=== PATIENT | female | born 1965 | race Two or more races ===

== ENCOUNTER 2025-01-21 16:36 | Emergency (ER) | payer MEDICAID, SELFPAY ==
[2025-01-21 16:37] VITALS: BMI 47.5
[2025-01-21 16:52] VITALS: BP 134/82; PULSE 96; RESP 18; TEMP 37; O2SAT 96
--- NOTE | 2025-01-21 16:55 | XR_ITS ---
Examination: CT brain head without contrast. 2-D sagittal coronal reconstructions Date and time of exam:January 21, 2025 1717 hrs. Indications: Patient fell today with injury to the head, head pain CTDI: vol (mGy):55.5 DLP: (mGycm):1100 Technique: Multiple CT axial sections of the brain have been obtained, 5 mm slice thickness. Contrast has not been administered. 2-D sagittal, coronal reconstructions have been obtained Low dose protocols were performed. One or more of the following dose reduction techniques were used; automated exposure control, adjustment of the mA and/or KV according to patient size, use of iterative reconstruction technique. Findings: No significant ventricular enlargement. Intra-axial or extra-axial hemorrhage density is not seen. No mass effect or midline shift Basal cisterns are not remarkable. Fourth ventricle is midline. Cranial vault intact. Impression: Negative for acute hemorrhage, mass effect or midline shift
--- NOTE | 2025-01-21 16:55 | XR_ITS ---
Examination: Shoulder,right, 3 views Technique: Shoulder AP internal rotation, AP external rotation, Y view shoulder, 3 views Exam date and time :January 21, 2025 1710 hrs. Indications: Injured the shoulder today, shoulder pain. Findings: Moderate narrowing glenohumeral joint Significant osteoarthritis acromioclavicular joint No acute fracture or shoulder dislocation Impression: No acute fracture
--- NOTE | 2025-01-21 16:55 | XR_ITS ---
Examination: CT cervical spine without contrast 2-D sagittal reconstructions 2-D coronal reconstructions 3-D reconstructions. Exam date and time: January 21, 2025 1717 hrs. Indications: Patient fell today with injury to the neck, neck pain CTDI:vol (mGy) 9.95 DLP: (mGycm) 200 Technique: Multiple 2 mm axial sections of the cervical spine have been obtained. The coronal and sagittal reconstructions have been obtained. 3-D reconstructions have been obtained. Low dose protocols were performed. One or more of the following dose reduction techniques were used; automated exposure control, adjustment of the mA and/or KV according to patient size, use of iterative reconstruction technique. Findings: Axial sections demonstrate intact base of the skull. C1 exhibit satisfactory relationship to the odontoid. No acute cervical vertebral body fracture seen. Alignment posterior spinous processes satisfactory. Impression: No acute cervical fracture.
--- NOTE | 2025-01-21 16:55 | XR_ITS ---
Examination: Knee bilateral, 6 views Technique: Knee AP, lateral, oblique, each knee total 6 views Date and time of exam: January 21, 2025 1710 hrs. Indications: Injury to both knees today, bilateral knee pain. Findings: Prominent osteopenia Bilateral advanced tricompartment osteoarthritis No fracture or dislocation involving either knee. Impression: No fracture or dislocation involving either knee
--- NOTE | 2025-01-21 16:55 | XR_ITS ---
Examination: Forearm, right, 2 views. Technique: Forearm, AP, lateral 2 views Date and time of exam: January 21, 2025 1710 hrs. Indications: Injury to the forearm today, forearm pain. Findings: No fracture or dislocation. No foreign body Impression: No fracture or dislocation
--- NOTE | 2025-01-21 16:55 | XR_ITS ---
Examination: Humerus 2 views right Technique: Humerus, AP lateral 2 views Date and time of exam: January 21, 2025 1715 hrs. Indications: Injury to the arm today, arm pain. Findings: No shoulder fracture or dislocation Shaft of the humerus appears intact Impression: No acute fracture
--- NOTE | 2025-01-21 16:56 | PD.EDRME ---
Rapid Medical Screening Exam RME Arrival date/time: 01/21/25 16:36 59-year-old female presents to the emergency department complains of bilateral knee pain, shoulder pain and arm pain as well as head and neck pain after ground-level fall last night Chief Complaint: Extremity Injury, Lower Time Seen by Provider: 01/21/25 16:45 Vital signs: Vital Signs Temperature 98.6 F 01/21/25 16:52 Pulse Rate 96 01/21/25 16:52 Respiratory Rate 18 01/21/25 16:52 Blood Pressure 134/82 H 01/21/25 16:52 Pulse Oximetry (%) 96 01/21/25 16:52 Oxygen Delivery Method Room Air 01/21/25 16:52
[2025-01-21 18:15] VITALS: BP 132/85; PULSE 90; RESP 19; TEMP 36.8; O2SAT 99
--- NOTE | 2025-01-21 18:38 | PRELIM_ITS ---
CT scan of the head without intravenous contrast (axial sections with sagittal and coronal reformats) January 21, 2025 1717 hours Clinical History: Trauma. Comparison: No prior study is available for comparison. Findings: There is no evidence of intracranial hemorrhage, mass effect or midline shift. There are periventricular white matter hypodensities, compatible with chronic small vessel ischemia. The CSF spaces are prominent consistent with moderate volume loss. Hyperostosis frontalis interna is identified. The calvarium is intact. The mastoid air cells and the visualized paranasal sinuses are clear. Impression: No evidence of intracranial hemorrhage, midline shift or calvarial fracture. Chronic small vessel ischemia and moderate volume loss. Report Electronically Signed By: Zuri Gordon 01/21/2025 6:37:56 PM [EST]
--- NOTE | 2025-01-21 18:42 | PRELIM_ITS ---
CT scan of the cervical spine without intravenous contrast (axial sections with sagittal and coronal reformats) January 21, 2025 1717 hours Clinical History: Trauma. Comparison: No prior study is available for comparison. Findings: The bones are osteopenic. There is no fracture or traumatic subluxation. There is straightening of the cervical lordosis, which may be due to muscle spasm or positioning. There are multilevel degenerative changes in the form of marginal osteophytes, decreased disc height, uncinate process and facet arthrosis. The prevertebral soft tissues are unremarkable. Impression: No evidence of fracture or traumatic subluxation. Other findings as described above. Report Electronically Signed By: Zuri Gordon 01/21/2025 6:41:43 PM [EST]
[2025-01-21] MEDS: ACETAMINOPHEN w/COD 300-30 TABLET 2 TAB PO (20:50)
[2025-01-21 21:00] VITALS: RESP 18
--- NOTE | 2025-01-21 21:55 | PD.EDFALL ---
ED Fall Injury RME/HPI General Chief Complaint: Extremity Injury, Lower Stated Complaint: knee pain, GLF Time Seen by Provider: 01/21/25 16:45 Arrival date/time: 01/21/25 16:36 RME / HPI RME / HPI Narrative: 01/21/25 16:36 59-year-old female presents to the emergency department complains of bilateral knee pain, shoulder pain and arm pain as well as head and neck pain after ground-level fall last night This section includes all my notes and documentations, including HPI, PE, and ED course. Marc Guadalupe MD HPI: 59-year-old female here to be evaluated after falling at home last night. She had a mechanical fall in the dark. Landed forward. Landed on her face and mainly on her right shoulder/arm. No loss of consciousness. Has headache. No neck pain or back pain. No chest pain or abdominal pain. No other complaints. ROS: All negative except as documented in HPI. Physical Exam: General: Alert and oriented. No acute distress. Eyes: Conjunctivae and lids clear. EOMI. PERRL. ENT: No signs of head trauma. Neck: Supple. No tenderness. Heart: RRR. Lungs: No respiratory distress. Good air movement. No rhonchi, wheezing, rales. Chest: No tenderness. Abdomen: Soft and nontender. Normal bowel sounds. No distension. No rebound or guarding. Back: No tenderness. Legs: No clubbing, cyanosis, edema. Skin: Warm and dry. Neuro: Alert and oriented X 3. Cranial Nerves II-XII grossly intact. No peripheral motor deficits. Musculoskeletal: Remarkable for equivocal right shoulder and right elbow tenderness. All other major joints and bones are not tender with no limited ROM. I reviewed all diagnostic test results. My interpretation of the x-rays is no acute fracture. My review of the head and cervical spine CT reports is no acute findings. At this point, diagnoses include no serious injury after falling except right shoulder strain. Treatment here included sling and two Tylenol #3. Eccles much better. Recommended supportive care. Based on my best medical judgment, made decision no further evaluation or treatment indicated at this time. Patient understands and agrees to the discharge instructions customized and printed, see below. Discharge Instructions from Dr. Guadalupe printed for you: 1. Fortunately, there is no very serious injury. Such as brain injury or broken neck or other broken bone or internal organ injury. 2. You sprained your right shoulder. 3. For rest needed to heal, wear the arm sling for 3 days then as needed. 4. Apply ice for 20 minutes every 2-3 hours today and tomorrow. 5. Ibuprofen 400 mg every 6-8 hours today and tomorrow to decrease inflammation then as needed. Tylenol with codeine for severe pain. 6. See a private doctor on 01/24/2025 for recheck and further care. Ask to review all the official radiology reports from today. 7. Seek immediate medical care with worsening or with any concerns. Marc Guadalupe MD Related Data Home Medications ?Medication ?Instructions ?Recorded ?Confirmed ascorbic acid (vitamin C) 500 mg 500 mg PO QDAY #0 tabs 09/04/17 tablet (Vitamin C) alogliptin 12.5 mg-metformin 1,000 1 tab PO BID 07/01/19 mg tablet lisinopril 20 1 tab PO QDAY 07/01/19 mg-hydrochlorothiazide 25 mg tablet naproxen 500 mg tablet (Naprosyn) 500 mg PO BID 07/01/19 Previous Rx's ?Medication ?Instructions ?Recorded ibuprofen 600 mg tablet 1 tab PO Q8HR PRN pain #30 tabs 09/04/17 celecoxib 200 mg capsule (Celebrex) 200 mg PO BID PRN pain #30 caps 07/01/19 dicyclomine 20 mg tablet 20 mg PO TID #30 tabs 10/11/22 acetaminophen 300 mg-codeine 30 mg 2 tab PO Q8H PRN pain #20 tabs 01/21/25 tablet Allergies Allergy/AdvReac Type Severity Reaction Status Date / Time No Known Allergies Allergy Verified 07/01/19 19:05 Course Quality Measures none Orders Category Date Time Status splint [Splint / Immobilizer] STAT Care 01/21/25 20:[address] cervical spine wo con Stat Exams 01/21/25 16:[address] head/brain wo con Stat Exams 01/21/25 16:55 Completed XR forearm RT 2V Stat Exams 01/21/25 16:55 Completed XR humerus RT min 2V Stat Exams 01/21/25 16:55 Completed XR knee BI 3V Stat Exams 01/21/25 16:55 Completed XR shoulder RT min 2V Stat Exams 01/21/25 16:55 Completed ACETAMINOPHEN w/COD 300-30 [Tylenol w/Cod #3] Med 01/21/25 20:30 Discontinued 2 tab PO X1 ONE Vital Signs Vital signs: Vital Signs Temperature 98.6 F 01/21/25 16:52 Pulse Rate 96 01/21/25 16:52 Respiratory Rate 18 01/21/25 16:52 Blood Pressure 134/82 H 01/21/25 16:52 Pulse Oximetry (%) 96 01/21/25 16:52 Oxygen Delivery Method Room Air 01/21/25 16:52 Fall Patient data External records reviewed:: [facility] previous records Clinical information provided by:: patient and family Social determinants that could affect healthcare access:: none Patient has the following chronic illnesses:: HTN How is presenting disease/condition affected by chronic disease/condition?: uneffected by Evaluation data The following diagnostics were reviewed and interpreted by me:: radiology exam(s) Lab and/or radiology exams considered but not ordered:: None Interpretation Summary: Normal diagnostics Medications / Prescriptions Medications or Prescriptions considered but not ordered:: None Medication administrations:: Medication Administration History Discontinued Medications Acetaminophen/Codeine Phosphate (Acetaminophen W/Cod 300-30 Tablet) 2 tab PO X1 ONE Stop: 01/21/25 20:31 Last Admin: 01/21/25 20:50 Dose: 2 tab Documented By: CVL Comments: PT BEING DISCHARGE PAIN DOWN TO 3 Sling and two Tylenol #3 Consultations Consultation(s) initiated? (list below): No Diagnosis Fall Differential Diagnosis: syncope, concussion with loss of consciousness, concussion without loss of consciousness and other (Limb fracture/contusion/sprain/strain) Most likely diagnosis given after review of the tests above:: Right shoulder strain Admission Indicated Admission indicated?: not indicated Explain why admission is indicated or not indicated:: There was no indication for admission. Admission Request Was there a request for admission?: No Disposition Plan Disposition Plan: Discharge Discharge Attestation Discharge Attestation: The patient and all family members were given an opportunity to ask questions and understood the discharge instructions. Discharge instructions specifically effects, indications for sooner follow up or return to the emergency department, and the expected course of current diagnosis. Patient condition: Stable Discharge Plan Plan Patient Disposition: HOME (Self Care) Prescriptions/Referrals Prescriptions/Med Rec: New acetaminophen-codeine 300-30 mg tablet 2 tab PO Q8H MDD 6 PRN (Reason: pain) Qty: 20 0RF No Action lisinopril-hydrochlorothiazide 20-25 mg tablet 1 tab PO QDAY alogliptin-metformin 12.5-1,000 mg tablet 1 tab PO BID naproxen [Naprosyn] 500 mg tablet 500 mg PO BID celecoxib [Celebrex] 200 mg capsule 200 mg PO BID PRN (Reason: pain) Qty: 30 0RF ascorbic acid (vitamin C) [Vitamin C] 500 MG tablet 500 mg PO QDAY Qty: 0 ibuprofen 600 MG tablet 1 tab PO Q8HR PRN (Reason: pain) Qty: 30 0RF dicyclomine 20 mg tablet 20 mg PO TID Qty: 30 0RF Referrals: Cristiano Tomlinson MD [Primary Care Provider] - In 1 week Problem List Clinical Impression: Sprain of right shoulder Patient/Caregiver Discharge Instructions Discharge Activity: activity as tolerated Education Materials: ED Shoulder Sprain Additional Instructions: Discharge Instructions from Dr. Guadalupe printed for you: 1. Fortunately, there is no very serious injury. Such as brain injury or broken neck or other broken bone or internal organ injury. 2. You sprained your right shoulder. 3. For rest needed to heal, wear the arm sling for 3 days then as needed. 4. Apply ice for 20 minutes every 2-3 hours today and tomorrow. 5. Ibuprofen 400 mg every 6-8 hours today and tomorrow to decrease inflammation then as needed. Tylenol with codeine for severe pain. 6. See a private doctor on 01/24/2025 for recheck and further care. Ask to review all the official radiology reports from today. 7. Seek immediate medical care with worsening or with any concerns. Print Language: Cam[place]onian Stand Alone Forms: Tanya Award Info., Patient Portal Info Letter
== END 2025-01-21 21:02 | disposition home or self-care (01) ==
PROVIDERS: Emergency Provider Emergency Medicine; PCP Family Medicine
DX: S43.401A Unspecified sprain of right shoulder joint, initial encounter (principal); M25.561 Pain in right knee; M25.562 Pain in left knee; M54.2 Cervicalgia; M79.601 Pain in right arm; R51.9 Headache, unspecified; I10 Essential (primary) hypertension; W18.30XA Fall on same level, unspecified, initial encounter; Y92.009 Unspecified place in unspecified non-institutional (private) residence as the place of occurrence of the external cause
CPT/HCPCS: 70450; 72125; 73030; 73060; 73090; 73562; 99284; A4565; A9270